=== PATIENT | male | born 1995 | race Caucasian/White ===

== ENCOUNTER 2018-01-02 19:27 | Emergency (ER) | payer SELFPAY ==
[~2018-01-02] VITALS: Ht 172.7 cm; Wt 86.2 kg
[2018-01-02 19:45] VITALS: Ht 172.7 cm; Wt 86.2 kg
[2018-01-02 20:55] LABS: BASOPHIL % 0.7 % (0-2); PLATELET COUNT 168 x10^3mcL (130-400); RED CELL DISTRIBUTION WIDTH 13.9 % (11.5-14.5)
[2018-01-02 20:56] LABS: CALCIUM 8.7 mg/dL (8.5-10.1); CARBON DIOXIDE 26.7 mmol/L (21-32); CHLORIDE SERUM 104 mmol/L (98-107); GFR1 > 60 mL/min; GLUCOSE SERUM 108 mg/dL (74-106); POTASSIUM SERUM 3.4 mmol/L (3.5-5.1); SODIUM SERUM 139 mmol/L (136-145)
[2018-01-02 21:01] LABS: ALKALINE PHOSPHATASE 105 U/L (46-116); ALT/SGPT 110 U/L (16-63); AST/SGOT 40 U/L (15-37); BILIRUBIN TOTAL 0.3 mg/dL (0.20-1.00)
[2018-01-02 21:03] LABS: TOTAL PROTEIN, SERUM 8.4 g/dL (6.4-8.2)
[2018-01-02 23:30] VITALS: BP 130/70
== END 2018-01-02 23:30 | disposition home or self-care (01) ==
LOC: ED 19:27
PROVIDERS: Emergency Medicine
DX: R07.89 Other chest pain (principal)
CPT/HCPCS: 36415; 83880; 85378